=== PATIENT | male | born 1965 | race Caucasian/White ===

== ENCOUNTER 2019-02-05 08:32 | Day surgery (SDC) | payer BC ==
[2019-02-04 08:35] VITALS: BMI 28.7
[~2019-02-05 08:32] MED LIST: EPINEPHrine 0.3 MG in Ophthalmic Irrigation Solution 500 ML IVP SCH
[2019-02-05] MEDS ORDERED: Cyclopentolate 1% Opth Drop 2 ML BOT ONE (09:00)
[2019-02-05] MEDS ORDERED: Phenylephrine 2.5% Ophth Soln 5 ML BOT ONE (09:00)
[2019-02-05] MEDS ORDERED: Midazolam HCl 2 mg/2 ml Vial ONE ×2 (09:23→10:05)
[2019-02-05] MEDS ORDERED: PROPOFOL 20 ML ONE (10:06)
[2019-02-05] MEDS ORDERED: Lidocaine 2% PF 5 ML VIAL ONE (10:06)
[2019-02-05] MEDS ORDERED: Fentanyl 100 MCG/2 ML VIAL ONE (10:07)
--- NOTE | 2019-02-05 12:30 | OP ---
DATE OF PROCEDURE: 02/05/2019 PREOPERATIVE DIAGNOSIS: Vitreous opacification, right eye. POSTOPERATIVE DIAGNOSIS: Vitreous opacification, right eye. PROCEDURES PERFORMED: Pars plana vitrectomy and membrane peel, right eye. ANESTHESIA: Local with monitored anesthesia care. PROCEDURE IN DETAIL: The patient was identified in the preoperative holding area. Appropriate informed consent for the planned surgical procedure on the right eye had been obtained. The patient was transported to the operative suite. Appropriate cardiopulmonary monitoring was established. Local anesthesia obtained using retrobulbar modified [place] Lint lid block using 50:50 mixture of 4% lidocaine and 0.75% bupivacaine. The patient was prepped and draped in usual sterile manner for ophthalmic surgery on the right eye. Lid speculum was placed in the right eye. A 27-gauge trocar was placed through the conjunctivae and sclerae superotemporally, inferotemporally, and supranasally. Infusion line was placed inferotemporally. Light pipe vitreous cutter inserted into the eye. Core vitrectomy was performed. Vitreous membranes were peeled from the retinal surface and removed from the eye. Indirect ophthalmoscopy was used to examine the retina 360 degrees. No holes, breaks, or tears were identified. Prophylactic laser was placed behind the sclerotomy sites. Trocars were removed. The eye was noted to retain pressure well. Retrobulbar Kenalog and subconjunctival Ancef were placed. Antibiotic ointment was placed. The eye was patched and shielded. The patient was taken to the postoperative recovery unit in good condition having suffered no immediate perioperative complications. The patient was instructed to keep patch and shield on, avoid lifting or bending, followup appointment with Dr. Webster. Job ID: [id number]
== END 2019-02-05 11:45 | disposition home or self-care (01) ==
LOC: SDC 08:32
PROVIDERS: ATTEND Ophthalmology Retina Specialist
PROC: 08NE3ZZ Release Right Retina, Percutaneous Approach (ICD-10-PCS; principal; 2019-02-05)
PROC: 08T43ZZ Resection of Right Vitreous, Percutaneous Approach (ICD-10-PCS; principal; 2019-02-05)
DX: H43.391 Other vitreous opacities, right eye (principal)
CPT/HCPCS: J2001; J2250; J2704; J3010